=== PATIENT | female | born 1985 | race Caucasian/White ===

== ENCOUNTER 2016-09-20 05:09 | Inpatient (IN) | payer BC ==
[2016-09-20] MEDS ORDERED: Sodium Chloride 0.9% 2.5 ML Syringe FLUSH PRN (05:33)
[2016-09-20] MEDS ORDERED: Methylergonovine 0.2 MG/1 ML Amp IM PRN (05:33)
[2016-09-20] MEDS ORDERED: Sodium Chloride 0.9% 10 ML Syringe FLUSH PRN (05:33)
[2016-09-20] MEDS ORDERED: Misoprostol 200 MCG Tab PO PRN (05:33)
[2016-09-20] MEDS ORDERED: Nalbuphine 10 MG/1 ML Vial IVPUSH PRN (05:33)
[2016-09-20] MEDS ORDERED: Water For Irrigation,Sterile 1,000 ML Container IRR PRN (05:33)
[2016-09-20] MEDS ORDERED: Lidocaine 1% 50 ML MDV INJECT PRN (05:33)
[2016-09-20] MEDS ORDERED: Butorphanol 1 MG/ML SDV IVPUSH PRN (05:33)
[2016-09-20] MEDS ORDERED: Carboprost Tromethamine 250 MCG/1 ML Amp IM PRN (05:33)
[2016-09-20] MEDS ORDERED: Terbutaline 1 MG/ML SDV SUBCUT PRN (05:35)
[2016-09-20] MEDS ORDERED: Oxytocin/Lactated Ringers 30 UNIT/500 ML BAG IV SCH ×2 (05:45)
[2016-09-20] MEDS ORDERED: fentaNYL 100 MCG/2 ML SDV ONE (09:16)
[2016-09-20] MEDS ORDERED: Ropivacaine 0.2% 2 MG/ML 20 ML SDV ONE (09:17)
[2016-09-20] MEDS: Lactated Ringers 1,000 ML IV SCH ×2 (09:17→11:00)
--- NOTE | 2016-09-20 10:03 | PCM.PREANE ---
Preanesthetic Assessment - Anesthesia/Transfusion/Family Hx Anesthesia History: Prior Anesthesia Without Reaction Other Type of Anesthesia Reaction Comment: 2 previous epidurals. First, one sided. Second PDPH. Pt fearful Family History of Anesthesia Reaction: No Transfusion History: No Prior Transfusion(s) - Review of Systems Pulmonary: No Symptoms Cardiovascular: No Symptoms Gastrointestinal: No symptoms Neurological: No Symptoms Other: Reports: None - Physical Assessment NPO Status Date: 09/20/16 NPO Status Time: 10:05 (cl liquids) Height: 1.56 m Weight: 61.689 kg ASA Class: 2 Mental Status: Alert & Oriented x3 Airway Class: Mallampati = 2 Dentition: Reports: Normal Dentition Thyro-Mental Finger Breadths: 3 Mouth Opening Finger Breadths: 3 ROM/Head Extension: Full Lungs: Clear to auscultation, Normal respiratory effort Cardiovascular: Regular Rate, Regular Rhythm - Lab Values: Laboratory Last Values WBC 9.53 K/uL (4.0-11.0) 09/20/16 05:39 RBC 3.88 M/uL (4.30-5.90) L 09/20/16 05:39 Hgb 13.0 g/dL (12.0-16.0) 09/20/16 05:39 Hct 37.7 % (36.0-46.0) 09/20/16 05:39 MCV 97.2 fL (80.0-98.0) 09/20/16 05:39 MCH 33.5 pg (27.0-32.0) H 09/20/16 05:39 MCHC 34.5 g/dL (31.0-37.0) 09/20/16 05:39 RDW Std Deviation 46.6 fl (28.0-62.0) 09/20/16 05:39 RDW Coeff of Nathan 13 % (11.0-15.0) 09/20/16 05:39 Plt Count 226 K/uL (150-400) 09/20/16 05:39 MPV 9.70 fL (7.40-12.00) 09/20/16 05:39 Nucleated RBC % 0.0 /100WBC 09/20/16 05:39 Nucleated RBCs # 0 K/uL 09/20/16 05:39 Blood Type B POSITIVE 09/20/16 05:39 Antibody Screen NEGATIVE 09/20/16 05:39 - Allergies Allergies/Adverse Reactions: Allergies Allergy/AdvReac Type Severity Reaction Status Date / Time No Known Allergies Allergy Verified 09/20/16 05:32 - Blood Blood Available: Yes Product(s) Available: PRBC - Acknowledgements Anesthesia Type Planned: Epidural Pt an Appropriate Candidate for the Planned Anesthesia: Yes Alternatives and Risks of Anesthesia Discussed w Pt/Guardian: Yes Pt/Guardian Understands and Agrees with Anesthesia Plan: Yes PreAnesthesia Questionnaire - Past Health History Medical/Surgical History: Denies Medical/Surgical History Cardiovascular History: Reports: Other (See Below) Other Cardiovascular History: varicose veins bilateral legs and feet. 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: Neurological History: Reports: Seizure Other Neuro History: seizure after delivery in 2014 with preeclampsia - Past Surgical History HEENT Surgical History: Reports: Oral Surgery Musculoskeletal Surgical History: Reports: Other (See Below) Other Musculoskeletal Surgeries/Procedures:: acl and left knee surgery - SUBSTANCE USE Smoking Status *Q: Never Smoker Days Per Week of Alcohol Use: 0 Recreational Drug Use History: No - HOME MEDS Home Medications: Home Meds Amoxicillin 500 mg PO TID #30 tab 04/07/14 [Rx] - CURRENT (IN HOUSE) MEDS Current Meds: Current Medications Butorphanol Tartrate (Stadol) 1 mg IVPUSH Q1H PRN PRN Reason: Pain Carboprost Tromethamine (Hemabate Ds) 250 mcg IM ASDIRECTED PRN PRN Reason: Post Hemorrhage Lactated Ringer's (Ringers, Lactated) 1,000 mls @ 150 mls/hr IV ASDIRECTED ALAYNA Last Admin: 09/20/16 09:17 Dose: 150 mls/hr Oxytocin/Lactated Ringer's (Pitocin In Lr 30 Units/500 Ml) 30 unit in 500 mls @ 2 mls/hr IV TITRATE ALAYNA; 2 MUNITS/MIN PRN Reason: Protocol Last Titration: 09/20/16 08:18 Dose: 8 munits/min, 8 mls/hr Lidocaine HCl (Xylocaine 1%) 50 ml INJECT .ONCE PRN PRN Reason: Laceration repair Methylergonovine Maleate (Methergine) 0.2 mg IM ASDIRECTED PRN PRN Reason: Post Hemorrhage Misoprostol (Cytotec) 200 mcg PO .ONCE PRN PRN Reason: Post Hemorrhage Sodium Chloride (Saline Flush) 10 ml FLUSH ASDIRECTED PRN PRN Reason: Keep Vein Open Sodium Chloride (Saline Flush) 2.5 ml FLUSH ASDIRECTED PRN PRN Reason: Keep Vein Open Sterile Water (Sterile Water For Irrigation) 1,000 ml IRR ASDIRECTED PRN PRN Reason: delivery Terbutaline Sulfate (Brethine) 0.25 mg SUBCUT ASDIRECTED PRN PRN Reason: Tacysystole Discontinued Medications Fentanyl (Sublimaze) Confirm Administered Dose 100 mcg .ROUTE .STK-MED ONE Stop: 09/20/16 09:17 Oxytocin/Lactated Ringer's (Pitocin In Lr 30 Units/500 Ml) 30 unit in 500 mls @ 999 mls/hr IV TITRATE ALAYNA PRN Reason: 999 MUNITS/MIN Stop: 09/20/16 06:16 Ropivacaine/Fentanyl/NS (Fentanyl 2 Mcg-Ropiv 0.2%-Ns) Confirm Administered Dose 100 mls @ as directed .ROUTE .STK-MED ONE Stop: 09/20/16 09:18 Ropivacaine (Naropin 0.2%) Confirm Administered Dose 20 ml .ROUTE .STK-MED ONE Stop: 09/20/16 09:18 - Free Text/Narrative Note: Labor Analgesia/Epidural Procedure start date: 09/20/16 time: 917 Attending provider aware Chart reviewed Permit signed Labs reviewed VS/FHR reviewed Pt identified/ID band Pt assessed Risks/Benefits discussed and accepted Monitors in place (BP, HR, SPO2) Patient, Site, Procedure Verification, Pause. Pain "5-6/10" Fluid bolus infused (fluid type and amount): 1000 ml LR infused with continued infusion Position: Sitting @ 0928 Prep: Betadine X 3 Sterile Drape Intradermal Wheal: 3 ml 1% Lidocaine Regional placement level: L3-4 Needle: 17 g Tuohy Approach: Midline Technique: JOSHUA glass syringe w 3 ml Sterile water JOSHUA needle depth: 6 cm Paresthesia: None Fluid Obtained: None Catheter insertion time: 930 Catheter depth at skin: 20 cm Test Dose Time: 934 RX: 3 ml 1.5% lidocaine with 1:200,000 epi Response: Negative Loading dose Time: 0706-0936 RX: 100 mcg fentanyl and 2 ml 0.2% ropivacaine dosed over 12 minutes Pt position: semi fowlers with AUDRA Continuous infusion Start Time: 952 RX: 100 ml 0.2% ropivacaine with 2mcg/ml fentanyl Continuous infusion rate: 6 ml/hr CATTLE RANCHER bolus option: 5 ml every 15 min Pt response Post procedure pain level: "0/10" VS and FHR monitored in unit post placement (See OB traceview for documentation. ) Pt had two previous epidurals. The first was "one-sided". The second resulted in PDPH with eventual blood patch needed for relief of headache. Pt also suffered seizure at home after delivery. Previous events discussed along with standard review of risks of epidural before proceeding. Pt very anxious and tearful prior to placement. No apparent complications with this placement. Pt received rapid relief of pain after dosing. VSS, FHR stable. Pt tolerated well and experienced good pain relief. Procedure end date: 09/20/16 time: 1024
[2016-09-20] MEDS ORDERED: Benzocaine/Menthol 20%-0.5% Spray 78 GM Cannister TOP PRN (15:33)
[2016-09-20] MEDS ORDERED: Bisacodyl 10 MG Supp RECTAL PRN (15:33)
[2016-09-20] MEDS ORDERED: Witch Hazel Medicated Pads 40/Jar TOP PRN (15:33)
[2016-09-20] MEDS ORDERED: Acetaminophen 500 MG Tab PO PRN (15:33)
[2016-09-20] MEDS ORDERED: Ibuprofen 400 MG Tab PO PRN (15:33)
[2016-09-20] MEDS ORDERED: Lanolin 100% Cream 7 GM Tube TOP PRN (15:33)
--- NOTE | 2016-09-20 20:10 | PCM48HPAN ---
Post Anesthesia Note - EVALUATION WITHIN 48HRS OF ANESTHETIC Vital Signs in Normal Range: Yes Patient Participated in Evaluation: Yes Respiratory Function Stable: Yes Airway Patent: Yes Cardiovascular Function Stable: Yes Hydration Status Stable: Yes Pain Control Satisfactory: Yes Nausea and Vomiting Control Satisfactory: Yes Mental Status Recovered: Yes - COMMENTS/OBSERVATIONS Free Text/Narrative:: Pt reports no problems from epidural. Has regained full sensation and motor movement. Denies headache.
[2016-09-20] MEDS: Ibuprofen 800 MG Tab PO PRN (21:40)
[2016-09-20] MEDS: oxyCODONE 5 MG Tab PO PRN (21:58)
[2016-09-20] MEDS: Docusate Sodium 100 MG Cap PO PRN (21:58)
[2016-09-21] MEDS: Acetaminophen 500 MG Tab PO PRN ×3 (01:03→18:56)
[2016-09-21] MEDS: Ibuprofen 800 MG Tab PO PRN ×2 (04:07→15:21)
--- NOTE | 2016-09-21 08:02 | PCM.PNPP ---
- General Info Date of Service: 09/21/16 Subjective Update: Patient is feeling well-denies headache or visual changes. Lochia is appropriate. Pain is controlled. Ambulating, voiding, going well. Functional Status: Reports: pain controlled, tolerating diet, ambulating, urinating - Review of Systems General: Denies: Fever, Weakness Pulmonary: Denies: shortness of breath Cardiovascular: Denies: Chest Pain, Palpitations, Lightheadedness Gastrointestinal: Denies: Abdominal pain, Nausea, Vomiting Genitourinary: Denies: flank pain Psychiatric: Reports: no symptoms - General Info Date of Service: 09/21/16 - Patient Data Vital Signs - most recent: Last Vital Signs Temp 36.6 C 09/21/16 07:55 Pulse 68 09/21/16 07:55 Resp 16 09/21/16 07:55 BP 102/64 09/21/16 07:55 Pulse Ox 99 09/21/16 07:55 Weight - most recent: 61.689 kg Lab Results - last 24 hrs: Laboratory Results - last 24 hr 09/21/16 Range/Units 04:47 Hgb 12.1 (12.0-16.0) g/dL Hct 36.6 (36.0-46.0) % Med Orders - Current: Current Medications Acetaminophen (Tylenol Extra Strength) 500 mg PO Q4H PRN PRN Reason: Pain Acetaminophen (Tylenol Extra Strength) 1,000 mg PO Q4H PRN PRN Reason: Pain Last Admin: 09/21/16 01:03 Dose: 1,000 mg Benzocaine/Menthol (Dermoplast Pain Relief 20%-0.5% [employer]) 78 gm TOP ASDIRECTED PRN PRN Reason: Perineal Comfort Measure Last Admin: 09/20/16 21:59 Dose: 1 canister Bisacodyl (Dulcolax) 10 mg RECTAL .ONCE PRN PRN Reason: Constipation Carboprost Tromethamine (Hemabate Ds) 250 mcg IM ASDIRECTED PRN PRN Reason: Post Hemorrhage Docusate Sodium (Colace) 100 mg PO BID PRN PRN Reason: Constipation Last Admin: 09/20/16 21:58 Dose: 100 mg Emollient Ointment (Lansinoh Hpa) 0 gm TOP ASDIRECTED PRN PRN Reason: Sore Nipples Last Admin: 09/20/16 21:59 Dose: 1 tube Lactated Ringer's (Ringers, Lactated) 1,000 mls @ 150 mls/hr IV ASDIRECTED ALAYNA Last Admin: 09/20/16 11:00 Dose: 150 mls/hr Oxytocin/Lactated Ringer's (Pitocin In Lr 30 Units/500 Ml) 30 unit in 500 mls @ 2 mls/hr IV TITRATE ALAYNA; 2 MUNITS/MIN PRN Reason: Protocol Last Titration: 09/20/16 11:38 Dose: 12 munits/min, 12 mls/hr Ibuprofen (Motrin) 400 mg PO Q4H PRN PRN Reason: Pain Ibuprofen (Motrin) 800 mg PO Q6H PRN PRN Reason: Pain Last Admin: 09/21/16 04:07 Dose: 800 mg Methylergonovine Maleate (Methergine) 0.2 mg IM ASDIRECTED PRN PRN Reason: Post Hemorrhage Oxycodone HCl (Oxycodone) 5 mg PO Q2H PRN PRN Reason: Pain Last Admin: 09/20/16 21:58 Dose: 5 mg Sodium Chloride (Saline Flush) 2.5 ml FLUSH ASDIRECTED PRN PRN Reason: Keep Vein Open Witch Sury (Tucks) 1 pad TOP ASDIRECTED PRN PRN Reason: comfort care Last Admin: 09/20/16 21:58 Dose: 1 tub Discontinued Medications Butorphanol Tartrate (Stadol) 1 mg IVPUSH Q1H PRN PRN Reason: Pain Fentanyl (Sublimaze) Confirm Administered Dose 100 mcg .ROUTE .STK-MED ONE Stop: 09/20/16 09:17 Oxytocin/Lactated Ringer's (Pitocin In Lr 30 Units/500 Ml) 30 unit in 500 mls @ 999 mls/hr IV TITRATE ALAYNA PRN Reason: 999 MUNITS/MIN Stop: 09/20/16 06:16 Ropivacaine/Fentanyl/NS (Fentanyl 2 Mcg-Ropiv 0.2%-Ns) Confirm Administered Dose 100 mls @ as directed .ROUTE .STK-MED ONE Stop: 09/20/16 09:18 Lidocaine HCl (Xylocaine 1%) 50 ml INJECT .ONCE PRN PRN Reason: Laceration repair Misoprostol (Cytotec) 200 mcg PO .ONCE PRN PRN Reason: Post Hemorrhage Ropivacaine (Naropin 0.2%) Confirm Administered Dose 20 ml .ROUTE .STK-MED ONE Stop: 09/20/16 09:18 Sodium Chloride (Saline Flush) 10 ml FLUSH ASDIRECTED PRN PRN Reason: Keep Vein Open Sterile Water (Sterile Water For Irrigation) 1,000 ml IRR ASDIRECTED PRN PRN Reason: delivery Terbutaline Sulfate (Brethine) 0.25 mg SUBCUT ASDIRECTED PRN PRN Reason: Tacysystole - Interaction Support Person: - Recovery Exam Fundal Tone: Firm Fundal Level: 1 Fingerbreadths Below Umbilicus Fundal Placement: Midline Lochia Amount: Scant Lochia Color: Rubra/Red Perineum Description: Edematous Episiotomy/Laceration: Approximated Bladder Status: Voiding Urinary Elimination: Voided - Exam General: alert, oriented Lungs: Normal respiratory effort Cardiovascular: Regular Rate, Regular Rhythm Abdomen: bowel sounds present, soft. No: CVA tenderness Extremities: no calf tenderness Skin: warm, dry, intact Psy/Mental Status: alert, normal affect - Problem List & Annotations (1) Vaginal delivery SNOMED Code(s): 249618396 Code(s): O80 - ENCOUNTER FOR FULL-TERM UNCOMPLICATED DELIVERY Status: Acute Current Visit: Yes - Problem List Review Problem List Initiated/Reviewed/Updated: Yes - My Orders Last 24 Hours: My Active Orders 09/20/16 15:33 Patient Status [ADT] Routine May Shower [RC] ASDIRECTED Up ad Gillian [RC] ASDIRECTED Vital Signs [RC] PER UNIT ROUTINE Acetaminophen [Tylenol Extra Strength] 1,000 mg PO Q4H PRN Acetaminophen [Tylenol Extra Strength] 500 mg PO Q4H PRN Benzocaine/Menthol [Dermoplast Pain Relief 20%-0.5% [employer]] 78 gm TOP ASDIRECTED PRN Bisacodyl [Dulcolax] 10 mg RECTAL .ONCE PRN Docusate Sodium [Colace] 100 mg PO BID PRN Ibuprofen [Motrin] 400 mg PO Q4H PRN Ibuprofen [Motrin] 800 mg PO Q6H PRN Lanolin [Lansinoh HPA] See Dose Instructions TOP ASDIRECTED PRN Witch Sury [Tucks] 1 pad TOP ASDIRECTED PRN oxyCODONE 5 mg PO Q2H PRN Assess Lochia [WOMSER] Per Unit Routine Assess Uterine Involution [WOMSER] Per Unit Routine Peripheral IV Discontinue [OM.PC] Routine 09/20/16 15:34 Ice Therapy [OM.PC] Per Unit Routine Perineal Care [OM.PC] Per Unit Routine Sitz Bath [OM.PC] Per Unit Routine 09/20/16 Dinner Regular Diet [DIET] - Assessment Assessment:: PPD 1 status post /1st MLL repaired - Plan Plan:: Patient is normotensive. Will continue to monitor today and continue cares. Anticipate discharge in the morning.
[2016-09-21] MEDS: Docusate Sodium 100 MG Cap PO PRN (08:45)
--- NOTE | 2016-09-21 10:01 | OR ---
SURGEON: Lili Dozier M.D. DATE OF PROCEDURE: 09/20/2016 PREOPERATIVE DIAGNOSES: 1. A 40 and 4 week intrauterine . 2. Induction of labor. 3. Left occiput transverse presentation persistent. POSTOPERATIVE DIAGNOSES: 1. A 40 and 4 week intrauterine . 2. Induction of labor. 3. Left occiput transverse presentation persistent. PROCEDURE: Vacuum assisted vaginal delivery with first-degree midline laceration repaired. ESTIMATED BLOOD LOSS: 350 mL. ANESTHESIA: Epidural. COMPLICATIONS: None. FINDINGS: Term female. score 8 at 1 minute and 9 at 5 minute. Weight is pending. Spontaneous delivery, intact placenta, 3-vessel cord. DISPOSITION: Infant to nursery, mom in LDR/P, stable. PROCEDURE DETAILS: Laura is a 31-year-old G3, P2-0-0-2, at 40 and 4 weeks' gestational age, who presents this morning for scheduled induction of labor for past due . The patient has had a history of difficulty with regional anesthesia and requirement of blood patch. She also has a history of preeclampsia. She has seen anesthesia in third trimester to discuss her concerns regarding regional anesthesia. In the morning of admission, the patient's blood pressure is normal, labs were normal, heart tones 140s with variability, category one. The patient was initially found to be 2 to 3 cm, 70% effaced, -2 station. Therefore, she was admitted, routine labs were drawn, and IV hydration was initiated and Pitocin induction was initiated. The patient began having regular contractions. She was found to be 3 cm shortly before 9:00 a.m. and she was starting to become more uncomfortable with contractions. Uncerwent regional anesthesia without difficulty and became much more comfortable. Shortly after noon, she underwent amniotomy with clear fluid returned. She began to progress more rapidly thereafter and shortly after 1:30 p.m., she was found to be 9 cm, 100% effaced, and zero station. I was called for delivery. Upon my arrival, the patient was found to be an anterior lip that was reduced easily with pushing effort. The patient continued to push readily for the next hour and a half approximately. However, the fetus was found to be in a persistent OT presentation and despite effort at manual rotation, the position would not stay and kept rotating to an OT presentation. The patient was becoming increasingly swollen and tired with pushing efforts, therefore, I discussed options with her. She is willing to proceed with an assisted vaginal delivery to help with rotation of head and help expedite her pushing efforts. The risks of a vacuum assisted operative vaginal delivery include cephalohematoma, intracranial bleeding, and maternal increased risk of vaginal lacerations. She and her voiced their understanding. She would like to proceed with the assisted delivery. The suture lines were again palpated and found to be LOT, was still at a 0 station. The vacuum was now gently placed, keeping the suture lines in mind and with the next contraction, was able to insufflate and rotate the head to a EMILY presentation and the head then delivered readily to a +3 station. I released the vacuum and with the next contraction, was once again able to insufflate and the head was delivered to a +4 station. The vacuum was now released. The patient continued to push. We were able to deliver 's head followed by anterior shoulder, posterior shoulder, main body without difficulty. The infant's oropharynx and nares were bulb suctioned. Cord was clamped x2 and cut after a delay of approximately 60 seconds. Infant was handed off to her mother with the attending nursing staff at her side. Cord arterial, cord venous, and cord blood sampling was obtained. Light suprapubic pressure was applied. The placenta was delivered spontaneously intact. Vigorous fundal uterine massage was then applied. 30 U of Pitocin was delivered in 500 mL of IV fluid. Upon inspection of cervix , vaginal sidewalls, and perineum, there was found to be first-degree perineal midline laceration present, this was repaired using 2-0 Caprosyn in the usual fashion. Some left hymenal bleeding was still noted, therefore this was repaired using a [id number] suture and hemostasis thereafter evident. Needle and sponge counts correct x2. The patient has tolerated the procedure well overall. Hemostasis appears evident. The patient remained in LDR/P. in nursery. VANESA / TRUDI /[id number] CHANDLER
[2016-09-21] MEDS: oxyCODONE 5 MG Tab PO PRN (12:04)
[2016-09-22] MEDS: Ibuprofen 800 MG Tab PO PRN (02:54)
[2016-09-22] MEDS: oxyCODONE 5 MG Tab PO PRN (03:18)
--- NOTE | 2016-09-22 06:52 | PCM.PNPP ---
- General Info Date of Service: 09/22/16 Subjective Update: Patient is feeling well-denies headache or visual changes. Lochia is dissipating. Pain is controlled. Ambulating, voiding, going well. Would like to go home. Functional Status: Reports: pain controlled, tolerating diet, ambulating, urinating - Review of Systems General: Denies: Fever, Weakness Pulmonary: Denies: shortness of breath Cardiovascular: Denies: Chest Pain, Palpitations, Lightheadedness Gastrointestinal: Denies: Nausea, Vomiting Genitourinary: Denies: flank pain Skin: Reports: no symptoms Psychiatric: Reports: no symptoms - General Info Date of Service: 09/22/16 - Patient Data Vital Signs - most recent: Last Vital Signs Temp 36.5 C 09/22/16 05:45 Pulse 58 L 09/22/16 05:45 Resp 14 09/22/16 05:45 BP 106/63 09/22/16 05:45 Pulse Ox 95 09/22/16 05:45 Weight - most recent: 61.689 kg Med Orders - Current: Current Medications Acetaminophen (Tylenol Extra Strength) 500 mg PO Q4H PRN PRN Reason: Pain Acetaminophen (Tylenol Extra Strength) 1,000 mg PO Q4H PRN PRN Reason: Pain Last Admin: 09/21/16 18:56 Dose: 1,000 mg Benzocaine/Menthol (Dermoplast Pain Relief 20%-0.5% [employer]) 78 gm TOP ASDIRECTED PRN PRN Reason: Perineal Comfort Measure Last Admin: 09/20/16 21:59 Dose: 1 canister Bisacodyl (Dulcolax) 10 mg RECTAL .ONCE PRN PRN Reason: Constipation Carboprost Tromethamine (Hemabate Ds) 250 mcg IM ASDIRECTED PRN PRN Reason: Post Hemorrhage Docusate Sodium (Colace) 100 mg PO BID PRN PRN Reason: Constipation Last Admin: 09/21/16 08:45 Dose: 100 mg Emollient Ointment (Lansinoh Hpa) 0 gm TOP ASDIRECTED PRN PRN Reason: Sore Nipples Last Admin: 09/20/16 21:59 Dose: 1 tube Lactated Ringer's (Ringers, Lactated) 1,000 mls @ 150 mls/hr IV ASDIRECTED ALAYNA Last Admin: 09/20/16 11:00 Dose: 150 mls/hr Oxytocin/Lactated Ringer's (Pitocin In Lr 30 Units/500 Ml) 30 unit in 500 mls @ 2 mls/hr IV TITRATE ALAYNA; 2 MUNITS/MIN PRN Reason: Protocol Last Titration: 09/20/16 11:38 Dose: 12 munits/min, 12 mls/hr Ibuprofen (Motrin) 400 mg PO Q4H PRN PRN Reason: Pain Ibuprofen (Motrin) 800 mg PO Q6H PRN PRN Reason: Pain Last Admin: 09/22/16 02:54 Dose: 800 mg Methylergonovine Maleate (Methergine) 0.2 mg IM ASDIRECTED PRN PRN Reason: Post Hemorrhage Oxycodone HCl (Oxycodone) 5 mg PO Q2H PRN PRN Reason: Pain Last Admin: 09/22/16 03:18 Dose: 5 mg Sodium Chloride (Saline Flush) 2.5 ml FLUSH ASDIRECTED PRN PRN Reason: Keep Vein Open Emilie Ga (Tucks) 1 pad TOP ASDIRECTED PRN PRN Reason: comfort care Last Admin: 09/20/16 21:58 Dose: 1 tub Discontinued Medications Butorphanol Tartrate (Stadol) 1 mg IVPUSH Q1H PRN PRN Reason: Pain Fentanyl (Sublimaze) Confirm Administered Dose 100 mcg .ROUTE .STK-MED ONE Stop: 09/20/16 09:17 Oxytocin/Lactated Ringer's (Pitocin In Lr 30 Units/500 Ml) 30 unit in 500 mls @ 999 mls/hr IV TITRATE ALAYNA PRN Reason: 999 MUNITS/MIN Stop: 09/20/16 06:16 Ropivacaine/Fentanyl/NS (Fentanyl 2 Mcg-Ropiv 0.2%-Ns) Confirm Administered Dose 100 mls @ as directed .ROUTE .STK-MED ONE Stop: 09/20/16 09:18 Lidocaine HCl (Xylocaine 1%) 50 ml INJECT .ONCE PRN PRN Reason: Laceration repair Misoprostol (Cytotec) 200 mcg PO .ONCE PRN PRN Reason: Post Hemorrhage Ropivacaine (Naropin 0.2%) Confirm Administered Dose 20 ml .ROUTE .STK-MED ONE Stop: 09/20/16 09:18 Sodium Chloride (Saline Flush) 10 ml FLUSH ASDIRECTED PRN PRN Reason: Keep Vein Open Sterile Water (Sterile Water For Irrigation) 1,000 ml IRR ASDIRECTED PRN PRN Reason: delivery Terbutaline Sulfate (Brethine) 0.25 mg SUBCUT ASDIRECTED PRN PRN Reason: Tacysystole - Interaction Infant Disposition, : in Room with Family Infant Interaction: Holding Feeding: Breastfed Infant; Nursed Well Support Person: - Recovery Exam Fundal Tone: Firm Fundal Level: 2 Fingerbreadths Below Umbilicus Fundal Placement: Midline Lochia Amount: Scant Lochia Color: Rubra/Red Perineum Description: Intact, Minimal Bruising/Swelling Episiotomy/Laceration: Approximated Bladder Status: Nonpalpable Urinary Elimination: Voided - Exam General: alert, oriented Lungs: Normal respiratory effort Cardiovascular: Regular Rate, Regular Rhythm Abdomen: bowel sounds present, soft. No: CVA tenderness Extremities: no calf tenderness Psy/Mental Status: alert, normal affect - Problem List & Annotations (1) Vaginal delivery SNOMED Code(s): 828315769 Code(s): O80 - ENCOUNTER FOR FULL-TERM UNCOMPLICATED DELIVERY Status: Acute Current Visit: Yes - Problem List Review Problem List Initiated/Reviewed/Updated: Yes - Assessment Assessment:: PPD 2 status post /1st MLL repaired - Plan Plan:: Vital signs remain stable. Discharge to home today. Discharge instructions reviewed. Infection and bleeding warnings discussed. Follow up at [facility] 6 weeks.
[2016-09-22] MEDS: Acetaminophen 500 MG Tab PO PRN (08:08)
[2016-09-22 08:11] VITALS: BP 102/66
== END 2016-09-22 10:40 | disposition home or self-care (01) | DRG 560 ==
LOC: MW.OBCHECK 05:09 → MW.OB 05:11 → MW.OBCHECK 15:29 → MW.OB 15:36
PROVIDERS: ADMIT Obstetrics & Gynecology; ATTEND Obstetrics & Gynecology
PROC: 10D07Z6 Extraction of Products of Conception, Vacuum, Via Natural or Artificial Opening (ICD-10-PCS; principal; 2016-09-20)
PROC: 3E033VJ Introduction of Other Hormone into Peripheral Vein, Percutaneous Approach (ICD-10-PCS; 2016-09-20)
PROC: 0HQ9XZZ Repair Perineum Skin, External Approach (ICD-10-PCS; 2016-09-20)
DX: O48.0 Post-term pregnancy (principal); O70.0 First degree perineal laceration during delivery; Z3A.40 40 weeks gestation of pregnancy; Z37.0 Single live birth
CPT/HCPCS: 01967; 36415; 51703; 59025; 85014; 85018; 85027; 86850; 86900; 86901; A9270-GY; J7120

== ENCOUNTER 2016-09-24 20:50 | Emergency (ER) | payer BC ==
[2016-09-24 22:03] LABS: CHLORIDE,CL 110 mmol/L (98-110); SODIUM,NA 142 mmol/L (136-146)
[2016-09-24 22:11] VITALS: BP 126/81
--- NOTE | 2016-09-24 22:33 | PCM.PN ---
- General Info Date of Service: 09/24/16 Admission Dx/Problem (Free Text): 31 yo day 4 presents with headache, swelling and BPs 140s/ 90s. Patient is concerned given history of eclampsia with last . She was up all night with infant last night. She has been taking ibuprofen and tylenol to help alleviate cramping and headache. Headache is mild, but persistent. Lochia is minimal. Denies fever or chills. Functional Status: Reports: pain controlled, tolerating diet, ambulating, urinating - Review of Systems General: Reports: Fatigue ( at home, awake last night with infant). Denies: Fever, Weakness Pulmonary: Denies: shortness of breath Cardiovascular: Reports: Edema (Trace to +1 pedal edema). Denies: Chest Pain, Palpitations, Lightheadedness Gastrointestinal: Reports: Flatus. Denies: Abdominal pain, Diarrhea, Nausea, Vomiting Genitourinary: Denies: dysuria, frequency, burning, flank pain Musculoskeletal: Denies: joint swelling Neurological: Reports: Headache (mild frontal headache, dull). Denies: Confusion, Dizziness Psychiatric: Denies: confusion, depression ( ) - Patient Data Vitals - most recent: Last Vital Signs Temp 36.8 C 09/24/16 21:25 Pulse 53 L 09/24/16 22:10 Resp 16 09/24/16 22:10 BP 126/81 09/24/16 22:10 Pulse Ox 99 09/24/16 22:10 Weight - most recent: 59.8 kg Lab Results last 24 hrs: Laboratory Results - last 24 hr 09/24/16 09/24/16 09/24/16 Range/Units 21:36 21:36 21:44 WBC 7.34 (4.0-11.0) K/uL RBC 3.74 L (4.30-5.90) M/uL Hgb 12.4 (12.0-16.0) g/dL Hct 36.7 (36.0-46.0) % MCV 98.1 H (80.0-98.0) fL MCH 33.2 H (27.0-32.0) pg MCHC 33.8 (31.0-37.0) g/dL RDW Std Deviation 46.5 (28.0-62.0) fl RDW Coeff of Nathan 13 (11.0-15.0) % Plt Count 219 (150-400) K/uL MPV 9.20 (7.40-12.00) fL Nucleated RBC % 0.0 /100WBC Nucleated RBCs # 0 K/uL Sodium 142 (136-146) mmol/L Potassium 3.7 (3.5-5.1) mmol/L Chloride 110 (98-110) mmol/L Carbon Dioxide 22 (21-31) mmol/L BUN 9 (6.0-23.0) mg/dL Creatinine 0.7 (0.6-1.5) mg/dL Est Cr Clr Drug Dosing 82.88 mL/min Estimated GFR (MDRD) > 60.0 ml/min Glucose 109 (60-110) mg/dL Calcium 8.7 L (8.8-10.8) mg/dL Total Bilirubin 0.2 (0.1-1.5) mg/dL AST 26 (5-40) IU/L ALT 31 (8-54) IU/L Alkaline Phosphatase 155 H (40-150) Total Protein 5.9 L (6.0-8.0) g/dL Albumin 3.2 L (3.5-5.0) g/dL Globulin 2.7 (2.0-3.5) g/dL Albumin/Globulin Ratio 1.2 L (1.3-2.8) Urine Color YELLOW Urine Appearance HAZY Urine pH 6.0 (5.0-8.0) Ur Specific [place] 1.020 (1.001-1.035) Urine Protein NEGATIVE (NEGATIVE) mg/dL Urine Glucose (UA) NEGATIVE (NEGATIVE) mg/dL Urine Ketones NEGATIVE (NEGATIVE) mg/dL Urine Occult Blood LARGE H (NEGATIVE) Urine Nitrite NEGATIVE (NEGATIVE) Urine Bilirubin NEGATIVE (NEGATIVE) Urine Urobilinogen 0.2 (<2.0) EU/dL Ur Leukocyte Esterase NEGATIVE (NEGATIVE) Urine RBC 15-20 (0-2/HPF) Urine WBC 0-2 (0-5/HPF) Ur Epithelial Cells RARE (NONE-FEW) Urine Bacteria RARE (NEGATIVE) - Exam General: alert, oriented Lungs: Clear to auscultation, Normal respiratory effort Cardiovascular: Regular Rate, Regular Rhythm Abdomen: soft, no tenderness. No: CVA tenderness Extremities: no calf tenderness, edema (Trace pedal edema), other (+2 DTRs bilaterally, no clonus observed) Psy/Mental Status: alert, normal affect - Problem List & Annotations (1) Gestational hypertension SNOMED Code(s): 80430809 Code(s): O13.9 - GESTATIONAL HTN W/O SIGNIFICANT PROTEINURIA, UNSP TRIMESTER Status: Acute Current Visit: Yes - Problem List Review Problem List Initiated/Reviewed/Updated: Yes - My Orders Last 24 Hours: My Active Orders 09/24/16 22:25 Ready for Discharge [RC] PER UNIT ROUTINE - Assessment Assessment:: Labile blood pressures/Gestational hypertension - Plan Plan:: Blood pressures 120/80s in ER. Labs are reassuring, normal hemoglobin, platelets. Normal LFTs. UA without protein. Reassured patient she does not appear to have preeclampsia. However, blood pressures are labile-- and this most certainly can be exacerbated by fatigue. She is advised to go home and try to sleep tonight. Hopefully her can help her with baby tonight. She will continue to intermittently monitor blood pressures and if remain elevated, will start low dose antihypertensive. Preeclampsia warnings reviewed. Discharge to home with close interval follow up in clinic this next week. Patient agrees to plan of care.
== END 2016-09-24 23:08 | disposition home or self-care (01) ==
LOC: MW.ED 20:50
DX: O13.5 Gestational [pregnancy-induced] hypertension without significant proteinuria, complicating the puerperium (principal)
CPT/HCPCS: 36415; 80053; 81001; 85027; 99284

== ENCOUNTER 2016-09-26 22:27 | Emergency (ER) | payer BC ==
--- NOTE | 2016-09-26 22:37 | EDM.PDOC ---
ED HPI GENERAL MEDICAL PROBLEM - General Stated Complaint: PT HAS HIGH BLOOD PRESSURE Time Seen by Provider: 09/26/16 22:28 - History of Present Illness INITIAL COMMENTS - FREE TEXT/NARRATIVE: HISTORY AND PHYSICAL: History of present illness: The patient is a 31-year-old female who is day 7 and presents with complaints of elevated blood pressure. The patient was seen here 2 days ago for same by Dr. Dozier her OB M.D. for elevated blood pressure and headache and had a lab workup and personal evaluation with Dr. Dozier. She had normal blood pressures here and was discharged home. The patient states that her blood pressure was elevated the next day and she called Dr. Dozier who placed her on labetalol 100 mg, one half tab twice a day. The patient has a history of eclampsia with her prior delivery and Dr. Dozier called in to the ED to let us know about this patient and need for reevaluation for elevated blood pressure. The patient is concerned about this history with the elevated blood pressures. According to the patient she has had a dull headache all day and took her half tablet of labetalol this morning as scheduled and it is worsened this evening and her blood pressure all day was running 140-150 systolic. The patient states that this evening it was 170 and she took half a tablet of her labetalol at 7 PM her usual dose and another extra half of the tablet at 7:30 PM as it was still elevated she took an extra full tablet at 8:30 PM. She also took Tylenol 500 mg at 7 PM for her headache. She has had no nausea or vomiting abdominal pain chest pain. Patient denies any leg pain or swelling but she does feel like her face is puffy. She's been eating and drinking normally and is presently breast-feeding without any difficulty. She has no neurosensory changes and actually no abdominal complaints. She says her lochia is almost completely gone. The patient does state that when she gets a headache she checks her blood pressure and if it's elevated it does aggravate her headache and make her more anxious Review of systems: As per history of present illness and below otherwise all systems reviewed and negative. Past medical history: As per history of present illness and as reviewed below otherwise noncontributory. Surgical history: As per history of present illness and as reviewed below otherwise noncontributory. Social history: No reported history of drug or alcohol abuse. Family history: As per history of present illness and as reviewed below otherwise noncontributory. Physical exam: Gen.: Well-developed well-nourished female who is nontoxic and speaking clearly and easily in the ED. Her vital signs of the noted by me in triage area HEENT: Atraumatic, normocephalic, pupils reactive, her eyelids are puffy and her sclera are injected she states from crying, negative for conjunctival pallor or scleral icterus, mucous membranes moist, throat clear, neck supple, nontender, trachea midline. Lungs: Clear to auscultation, breath sounds equal bilaterally, chest nontender. Heart: S1S2, regular, negative for clicks, rubs, or JVD. Abdomen: Soft, nondistended, nontender. Negative for masses or hepatosplenomegaly. Negative for costovertebral tenderness. Pelvis: Stable nontender. Genitourinary: Deferred. Rectal: Deferred. Extremities: Atraumatic, negative for cords or calf pain. Neurovascular unremarkable. no pedal edema or leg asymmetry Neuro: Awake, alert, oriented. Cranial nerves II through XII unremarkable. Cerebellum unremarkable. Motor and sensory unremarkable throughout. Exam nonfocal. Diagnostics: CBC CMP UA Therapeutics: IV blood pressure monitoring, I offered the patient something stronger for her headache as I thought that might assist in her blood pressure management if we took care of the pain as that may be contributing to her blood pressure. She declines meds at this time. I will do the workup and discussed the case with Dr. Dozier before medicating her blood pressure Since the patient has been in the emergency department her systolic blood pressure has gone from 178 down to 160 without any intervention. Her diastolic has continued to be in the 80s to 90s. Her heart rate has been in the 50s. I will contact Dr. Dozier for further management of this case. 0018: Testing and blood pressures were discussed with Dr. Dozier. As the patient has slowly come down on her systolic she would like to give a dose of Toradol IV here as well as a small dose of Lasix 10 mg IV push. She would also like to increase her labetalol to 100 mg 2 times a day and have the patient follow up in her clinic. I discussed this care plan with the patient and she is agreeable. Impression: hypertension Definitive disposition and diagnosis as appropriate pending reevaluation and review of above. Headache Pain Score (Numeric/FACES): 6 - Related Data Allergies Allergy/AdvReac Type Severity Reaction Status Date / Time No Known Allergies Allergy Verified 09/26/16 22:44 Home Meds: Home Meds Labetalol [Normodyne] 50 mg PO BID 09/26/16 [History] Past Medical History - Past Health History Medical/Surgical History: Denies Medical/Surgical History Cardiovascular History: Reports: Hypertension, Other (See Below) Other Cardiovascular History: varicose veins bilateral legs and feet. uses compression hose Gastrointestinal History: Reports: [employer] History: Reports: Other OB/BYN History: pre-ecclampsia Neurological History: Reports: Seizure Other Neuro History: seizure after delivery in 2014 with preeclampsia - Infectious Disease History Infectious Disease History: Reports: Chicken Pox - Past Surgical History HEENT Surgical History: Reports: Oral Surgery Musculoskeletal Surgical History: Reports: Other (See Below) Other Musculoskeletal Surgeries/Procedures:: acl and left knee surgery Social & Family History - Family History Family Medical History: Noncontributory - Tobacco Use Smoking Status *Q: Never Smoker Second Hand Smoke Exposure: No - Caffeine Use Caffeine Use: Reports: None - Alcohol Use Days Per Week of Alcohol Use: 0 - Recreational Drug Use Recreational Drug Use: No ED ROS GENERAL - Review of Systems Review Of Systems: ROS reveals no pertinent complaints other than HPI. ED EXAM, GENERAL - Physical Exam Exam: See Below (See dictation) Course - Vital Signs Last Recorded V/S: Last Vital Signs Temp 36.3 C 09/26/16 22:39 Pulse 54 L 09/27/16 00:10 Resp 19 09/26/16 22:39 BP 165/87 H 09/27/16 00:10 Pulse Ox 98 09/26/16 22:39 - Orders/Labs/Meds Orders: Active Orders 24 hr Category Date Time Status Furosemide [Lasix] Med 09/27/16 00:25 Once 10 mg IVPUSH NOW ONE Ketorolac [Toradol] Med 09/27/16 00:25 Once 30 mg IVPUSH ONETIME ONE Sodium Chloride 0.9% [Saline Flush] Med 09/26/16 23:09 Active 10 ml FLUSH ASDIRECTED PRN Sodium Chloride 0.9% [Saline Flush] Med 09/26/16 23:09 Active 2.5 ml FLUSH ASDIRECTED PRN Saline Lock Insert [OM.PC] Stat Oth 09/26/16 23:09 Ordered Medication Orders Sodium Chloride (Saline Flush) 10 ml FLUSH ASDIRECTED PRN PRN Reason: Keep Vein Open Sodium Chloride (Saline Flush) 2.5 ml FLUSH ASDIRECTED PRN PRN Reason: Keep Vein Open Labs: Laboratory Tests 09/26/16 09/26/16 09/26/16 Range/Units 23:25 23:25 23:45 WBC 8.55 (4.0-11.0) K/uL RBC 4.39 (4.30-5.90) M/uL Hgb 14.4 (12.0-16.0) g/dL Hct 42.8 (36.0-46.0) % MCV 97.5 (80.0-98.0) fL MCH 32.8 H (27.0-32.0) pg MCHC 33.6 (31.0-37.0) g/dL RDW Std Deviation 45.7 (28.0-62.0) fl RDW Coeff of Nathan 13 (11.0-15.0) % Plt Count 269 (150-400) K/uL MPV 9.20 (7.40-12.00) fL Neut % (Auto) 63.1 (48.0-80.0) % Lymph % (Auto) 28.9 (16.0-40.0) % [place] % (Auto) 6.3 (0.0-15.0) % Eos % (Auto) 1.5 (0.0-7.0) % Baso % (Auto) 0.2 (0.0-1.5) % Neut # (Auto) 5.4 (1.4-5.7) K/uL Lymph # (Auto) 2.5 H (0.6-2.4) K/uL [place] # (Auto) 0.5 (0.0-0.8) K/uL Eos # (Auto) 0.1 (0.0-0.7) K/uL Baso # (Auto) 0.0 (0.0-0.1) K/uL Nucleated RBC % 0.0 /100WBC Nucleated RBCs # 0 K/uL Sodium 142 (136-146) mmol/L Potassium 4.0 (3.5-5.1) mmol/L Chloride 111 H (98-110) mmol/L Carbon Dioxide 21 (21-31) mmol/L BUN 10 (6.0-23.0) mg/dL Creatinine 0.7 (0.6-1.5) mg/dL Est Cr Clr Drug Dosing 82.88 mL/min Estimated GFR (MDRD) > 60.0 ml/min Glucose 94 (60-110) mg/dL Calcium 9.3 (8.8-10.8) mg/dL Total Bilirubin 0.2 (0.1-1.5) mg/dL AST 17 (5-40) IU/L ALT 26 (8-54) IU/L Alkaline Phosphatase 161 H (40-150) Total Protein 6.8 (6.0-8.0) g/dL Albumin 3.8 (3.5-5.0) g/dL Globulin 3.0 (2.0-3.5) g/dL Albumin/Globulin Ratio 1.3 (1.3-2.8) Urine Color YELLOW Urine Appearance CLEAR Urine pH 6.5 (5.0-8.0) Ur Specific [place] <= 1.005 (1.001-1.035) Urine Protein NEGATIVE (NEGATIVE) mg/dL Urine Glucose (UA) NEGATIVE (NEGATIVE) mg/dL Urine Ketones NEGATIVE (NEGATIVE) mg/dL Urine Occult Blood TRACE-INTACT (NEGATIVE) Urine Nitrite NEGATIVE (NEGATIVE) Urine Bilirubin NEGATIVE (NEGATIVE) Urine Urobilinogen 0.2 (<2.0) EU/dL Ur Leukocyte Esterase NEGATIVE (NEGATIVE) Urine RBC 0-1 (0-2/HPF) Urine WBC 0-1 (0-5/HPF) Ur Epithelial Cells NONE SEEN (NONE-FEW) Meds: Medications Generic Name Dose Route Start Last Admin Trade Name Freq PRN Reason Stop Dose Admin Sodium Chloride 10 ml 09/26/16 23:09 Saline Flush FLUSH ASDIRECTED PRN Keep Vein Open Sodium Chloride 2.5 ml 09/26/16 23:09 Saline Flush FLUSH ASDIRECTED PRN Keep Vein Open Departure - Departure Time of Disposition: 00:26 Disposition: Home, Self-Care 01 Condition: Good Clinical Impression: hypertension - Discharge Information Additional Instructions: The following information is given to patients seen in the emergency department who are being discharged to home. This information is to outline your options for follow-up care. We provide all patients seen in our emergency department with a follow-up referral. The need for follow-up, as well as the timing and circumstances, are variable depending upon the specifics of your emergency department visit. If you don't have a primary care physician on staff, we will provide you with a referral. We always advise you to contact your personal physician following an emergency department visit to inform them of the circumstance of the visit and for follow-up with them and/or the need for any referrals to a consulting specialist. The emergency department will also refer you to a specialist when appropriate. This referral assures that you have the opportunity for followup care with a specialist. All of these measure are taken in an effort to provide you with optimal care, which includes your followup. Under all circumstances we always encourage you to contact your private physician who remains a resource for coordinating your care. When calling for followup care, please make the office aware that this follow-up is from your recent emergency room visit. If for any reason you are refused follow-up, please contact the emergency department at and ask to speak to the [place] [address] Dozier in the office tomorrow and let her know how your blood pressure is doing. Return to ER as needed and as discussed. Please increase her labetalol to 100 mg twice a day and try to avoid salt and sodium rich foods. Continue using Tylenol for headache pain and you may increase it to 2 tabs extra strength every 6-8 hours. - My Orders Last 24 Hours: My Active Orders 09/26/16 23:09 Sodium Chloride 0.9% [Saline Flush] 10 ml FLUSH ASDIRECTED PRN Sodium Chloride 0.9% [Saline Flush] 2.5 ml FLUSH ASDIRECTED PRN Saline Lock Insert [OM.PC] Stat 09/27/16 00:25 Furosemide [Lasix] 10 mg IVPUSH NOW ONE Ketorolac [Toradol] 30 mg IVPUSH ONETIME ONE - Assessment/Plan Last 24 Hours: My Active Orders 09/26/16 23:09 Sodium Chloride 0.9% [Saline Flush] 10 ml FLUSH ASDIRECTED PRN Sodium Chloride 0.9% [Saline Flush] 2.5 ml FLUSH ASDIRECTED PRN Saline Lock Insert [OM.PC] Stat 09/27/16 00:25 Furosemide [Lasix] 10 mg IVPUSH NOW ONE Ketorolac [Toradol] 30 mg IVPUSH ONETIME ONE
[2016-09-26] MEDS ORDERED: Sodium Chloride 0.9% 10 ML Syringe FLUSH PRN (23:09)
[2016-09-26] MEDS ORDERED: Sodium Chloride 0.9% 2.5 ML Syringe FLUSH PRN (23:09)
[2016-09-26 23:49] LABS: CHLORIDE,CL 111 mmol/L (98-110); SODIUM,NA 142 mmol/L (136-146)
[2016-09-27] MEDS ORDERED: Ketorolac 30 MG/ML SDV IVPUSH ONE (00:25)
[2016-09-27] MEDS ORDERED: Furosemide 40 MG/4 ML VIAL IVPUSH ONE (00:25)
[2016-09-27 00:41] VITALS: BP 158/96
== END 2016-09-27 00:55 | disposition home or self-care (01) ==
LOC: MW.ED 22:27
DX: O10.93 Unspecified pre-existing hypertension complicating the puerperium (principal); O99.63 Diseases of the digestive system complicating the puerperium; K21.9 Gastro-esophageal reflux disease without esophagitis; Z98.890 Other specified postprocedural states
CPT/HCPCS: 36415; 80053; 81001; 85025; 96374; 96375; 99284; J1885; J1940